=== PATIENT | female | born 1945 | race Caucasian/White ===

== ENCOUNTER → 2016-11-12 | Day surgery (SDC) | payer OTHER ==
[~2016-11-12] MED LIST: ANCEF VIAL 1 GM ONE; D5 LR 1000 ML 1,000 ML IV ONE; NS 50 ML IV + SPIKE MINIBAG* 50 ML IV ONE; NS IRRIGATION 1000 ML 1,000 ML with BACITRACIN VIAL 50,000 UNT IR ONE
[2016-11-12] MEDS: XYLOCAINE 1% and EPINEPHRINE 1:100,000 ONE ×2 (09:28→09:38)
[2016-11-12] MEDS: MARCAINE 0.25% WITH EPI IJ ONE ×2 (09:28→09:38)
[2016-11-12 10:52] VITALS: BP 104/69
== END | disposition home or self-care (01) ==
LOC: SURG1 07:36
PROVIDERS: ATTEND Specialist
PROC: 0JWT0MZ Revision of Stimulator Generator in Trunk Subcutaneous Tissue and Fascia, Open Approach (ICD-10-PCS; principal; 2016-11-12 09:45)
DX: T85.193A Other mechanical complication of implanted electronic neurostimulator, generator, initial encounter (principal)
CPT/HCPCS: A4222; S0020; J0690; J2001; J7120